=== PATIENT | male | born 1985 | race Caucasian/White ===

== ENCOUNTER 2018-01-04 11:09 | Emergency (ER) | payer BC, OTHER ==
[~2018-01-04] VITALS: Ht 172.7 cm; Wt 81.6 kg
[~2018-01-04 11:09] MED LIST: ACHD5005 PO; ACHYD1T PO; AZIT250T PO; CEPH500C PO; CIPR500T78 PO; CPR500T PO; DOXY100C2 PO; FAMO20TA5 PO; HYDR-2997 PO; HYDR-3714 PO; HYDR-4226 PO; NAPR-243 PO; NAPR-915 PO; NEOM10DR6 EACH EAR; OTC ALLERGY MED; PRD20T PO; SULF1TAB35 PO; SULF1TAB38 PO; TAMS0.4C2 PO; TRM50T PO
[2018-01-04 12:05] VITALS: BP 136/91
[2018-01-04 12:24] LABS: BASOPHILS % (AUTO) 0 % (0-10); EOSINOPHILS # (AUTO) 0.2 10^3/uL (0.0-0.3); EOSINOPHILS % (AUTO) 1 % (0-10); HEMATOCRIT 45 % (40-54); HEMOGLOBIN 15.7 G/DL (13.3-17.7); LYMPHOCYTES # (AUTO) 1.4 X 10^3 (1.0-4.0); LYMPHOCYTES % (AUTO) 13 % (12-44); MEAN CORPUSCULAR HEMOGLOBIN 32 PG (25-34); MEAN CORPUSCULAR HGB CONC 35 G/DL (32-36); MEAN CORPUSCULAR VOLUME 91 FL (80-99); MEAN PLATELET VOLUME 10.3 FL (7.4-10.4); MONOCYTES % (AUTO) 9 % (0-12); NEUTROPHILS # (AUTO) 8.7 X 10^3 (1.8-7.8); NEUTROPHILS % (AUTO) 77 % (42-75); PLATELET COUNT 194 10^3/uL (130-400); RED BLOOD COUNT 4.94 10^6/uL (4.35-5.85); RED CELL DISTRIBUTION WIDTH 14.5 % (10.0-14.5); WHITE BLOOD COUNT 11.3 10^3/uL (4.3-11.0)
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
[2018-01-04] MEDS ORDERED: KETOROLAC 30 MG/ML VIAL IVP ONE (12:30)
[2018-01-04] MEDS ORDERED: NS IV 1000 ML 1,000 ML IV SCH (12:30)
[2018-01-04 12:43] LABS: ALANINE AMINOTRANSFERASE 31 U/L (0-55); ALBUMIN 4.4 GM/DL (3.2-4.5); ALKALINE PHOSPHATASE 106 U/L (40-136); AMYLASE 63 U/L (25-125); BILIRUBIN,TOTAL 0.6 MG/DL (0.1-1.0); BUN/CREATININE RATIO 11; CALCIUM 9.5 MG/DL (8.5-10.1); CARBON DIOXIDE 23 MMOL/L (21-32); CHLORIDE 105 MMOL/L (98-107); CREATININE SERUM 1.22 MG/DL (0.60-1.30); GFR ESTIMATED > 60; GLUCOSE 114 MG/DL (70-105); LIPASE 60 U/L (8-78); POTASSIUM 4.5 MMOL/L (3.6-5.0); SODIUM 140 MMOL/L (135-145); TOTAL PROTEIN 7.2 GM/DL (6.4-8.2)
--- NOTE | 2018-01-04 12:59 | Diagnostic Imaging Report ---
PROCEDURE: CT urinary tract, rule out kidney stone. TECHNIQUE: Multiple contiguous axial images were obtained through the abdomen and pelvis without the use of intravenous contrast. INDICATION: Hematuria and left flank pain. History of previous kidney stone. Comparison with 01/03/2015. Findings: There is hydronephrosis of the left kidney and ureter. Left ureter is dilated with a stone in the ureter in the midpelvis measuring 5 mm. Ureter is not dilated distal to this. Bladder is decompressed. No hydronephrosis noted on the right. There is a 3 mm calculus within the lower pole calyx of the left kidney. Right kidney shows several calculi largest in the upper pole measuring 5 mm. There is no perinephric fluid. The lung bases are clear. The liver and gallbladder are normal. Pancreas and spleen are normal. Adrenal glands are normal. Bowel gas pattern is normal throughout. The appendix is not dilated. No free air or free fluid. IMPRESSION: 1. Development of hydronephrosis on the left since previous exam with 5 mm calculus in the ureter at the level of the mid pelvis. 2. Nonobstructing small calyceal calculi noted in the kidneys bilaterally. Dictated by: Dictated on workstation # [id number]
[2018-01-04 13:32] LABS: BILIRUBIN,URINE NEGATIVE (NEGATIVE); CLARITY,URINE VERY CLOUDY; COLOR,URINE AMBER; GLUCOSE, URINE (UA) NEGATIVE (NEGATIVE); KETONES,URINE 1+ (NEGATIVE); LEUKOCYTE ESTERASE ,URINE 2+ (NEGATIVE); NITRITE,URINE NEGATIVE (NEGATIVE); PH,URINE 7 (5-9); PROTEIN,URINE 3+ (NEGATIVE); UROBILINOGEN,URINE 1 MG/DL (NORMAL)
--- NOTE | 2018-01-04 13:35 | Diagnostic Imaging Report ---
INDICATION: Back pain, hematuria. COMPARISON: None. FINDINGS: 2 views of the abdomen demonstrate calcifications in the upper pole of the right kidney. No obvious ureteral calcifications are seen. The bowel gas pattern is normal. There is no free air. IMPRESSION: Upper pole renal calcifications likely nephrolithiasis. Dictated by: Dictated on workstation # [id number]
[2018-01-04 13:44] LABS: BACTERIA,URINE TRACE /HPF; RBC,URINE TNTC /HPF
[2018-01-04 13:45] LABS: CALCIUM OXALATE CRYSTALS,UR RARE /LPF; SQUAMOUS EPITHELIAL CELL,UR 0-2 /HPF
[2018-01-04] MEDS ORDERED: fentaNYL INJECTION 100 MCG/2 ML AMP IVP ONE (14:15)
[2018-01-04] MEDS ORDERED: ACHD5005 PO (14:18)
[2018-01-04] MEDS ORDERED: SULF1TAB35 PO (14:18)
== END 2018-01-04 14:26 | disposition home or self-care (01) ==
LOC: EDUNIT# 11:09 → ER 11:10
DX: N20.0 Calculus of kidney (principal); F17.200 Nicotine dependence, unspecified, uncomplicated; Z86.19 Personal history of other infectious and parasitic diseases
CPT/HCPCS: 36415; 74018; 74176; 80053; 81000; 82150; 83690; 85025; 87088

== ENCOUNTER 2018-01-26 16:47 | Emergency (ER) | payer BC ==
[~2018-01-26] VITALS: Ht 175.3 cm; Wt 79.4 kg
--- OUTSIDE RECORDS SUMMARY | 2018-01-26 16:52 | XMS REPORT | Continuity of Care Document ---
Author Author [facility] Address Unknown Phone Unavailable Allergies Active Description Code Type Severity Reaction Onset Reported/Identified Relationship to Patient Clinical Status Yes NKANo Known Allergies NKA Miscellaneous Allergy Mild N/A 08/24/2009 Medications There is no data. 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 NOS 02/05/2010 300.00 AN ANXIETY UNSPEC 02/05/2010 461.9 ACUTE SINUSITIS UNSPECIFIED 02/05/2010 LAZARUS VOGEL MD 296.90 MO MOOD DIS NOS 02/05/2010 LAZARUS VOGEL MD 300.00 AN ANXIETY UNSPEC 02/05/2010 LAZARUS VOGEL MD 461.9 ACUTE SINUSITIS UNSPECIFIED 01/22/2011 786.2 COUGH 01/22/2011 LAZARUS VOGEL MD 786.2 COUGH 03/06/2011 Ot 305.1 03/06/2011 Ot 465.9 03/06/2011 Ot 490 03/06/2011 Ot 786.2 03/06/2011 Ot 786.52 03/11/2011 Ot 305.1 03/11/2011 Ot 490 03/11/2011 Ot 786.2 03/11/2011 Ot 786.52 08/01/2011 Ot 930.1 08/01/2011 Ot E000.8 08/01/2011 Ot E016.9 08/01/2011 Ot E914 08/01/2011 Ot V06.1 06/09/2012 V70.5 PREEMPLOYMENT/ PRESCHOOL EXAM 06/09/2012 V74.1 TB SCREENING 06/09/2012 LAZARUS VOGEL MD V70.5 PREEMPLOYMENT/PRESCHOOL EXAM 06/09/2012 LAZARUS VOGEL MD V74.1 TB SCREENING 11/21/2012 DORITA GUTIERREZ MD Ot 346.90 11/21/2012 MATT MANUEL, DORITA T Ot 784.0 03/08/2013 YESSENIA MANUEL, YAZ Valencia Ot 543.9 03/08/2013 YESSENIA MANUEL, YAZ Valencia Ot 789.09 03/08/2013 YAZ CASAS MD Ot 920 03/10/2013 LELA MANUEL, LAZARUS N Ot 305.1 03/10/2013 LELA MANUEL, LAZARUS N Ot 564.00 03/10/2013 LELA MANUEL, LAZARUS N Ot 591 03/10/2013 LELA MANUEL, LAZARUS N Ot 592.0 03/10/2013 LELA MANUEL, LAZARUS N Ot 592.1 06/08/2013 YESSENIA MANUEL, YAZ Valencia Ot 388.70 06/08/2013 YAZ CASAS MD Ot 786.2 07/04/2013 LUIS ANTONIO EASTON Ot 372.14 07/04/2013 LUIS ANTONIO EASTON Ot 379.93 01/18/2014 YAZ CASAS MD Ot 592.0 01/18/2014 YAZ CASAS MD Ot 789.04 01/03/2015 ADAMARIS AMIRAH MATA K Ot 682.3 01/03/2015 ADAMARIS AMIRAH K Ot 789.09 01/03/2015 ADAMARIS AMIRAH MATA K Ot V12.04 03/30/2015 ZAIDA DIOP APRN Ot F17.210 03/30/2015 ZAIDA DIOP APRN Ot F19.10 03/30/2015 ZAIDA DIOP BI REPORT DEVELOPER Ot J40 03/30/2015 ZAIDA DIOP BI REPORT DEVELOPER Ot S39.92XA 03/30/2015 ZAIDA DIOP BI REPORT DEVELOPER Ot W01.0XXA 03/30/2015 ZAIDA DIOP BI REPORT DEVELOPER Ot Y99.8 01/06/2018 SATISH DAVIS Ot F17.200 NICOTINE DEPENDENCE, UNSPECIFIED, UNCOMP 01/06/2018 SATISH DAVIS Ot N20.0 CALCULUS OF KIDNEY 01/06/2018 SATISH DAVIS Ot R10.9 UNSPECIFIED ABDOMINAL PAIN 01/06/2018 SATISH DAVIS Ot Z86.19 PERSONAL HISTORY OF OTHER INFECTIOUS AND Procedures Code [place] [address] TB TEST INTRADERMAL 06/09/2012 96246 URINE DRUG SCREEN (IN-HOUSE ) 06/09/2012 Results Test Result Range Complete blood count (CBC) with automated white blood cell (WBC) differential - 01/04/18 12:15 Blood leukocytes automated count (number/volume) 11.3 10*3/uL 4.3-11.0 Blood erythrocytes automated count (number/volume) 4.94 10*6/uL 4.35-5.85 Venous blood hemoglobin measurement (mass/volume) 15.7 g/dL 13.3-17.7 Blood hematocrit (volume fraction) 45 % 40-54 Automated erythrocyte mean corpuscular volume 91 [foz_us] 80-99 Automated erythrocyte mean corpuscular hemoglobin (mass per erythrocyte) 32 pg 25-34 Automated erythrocyte mean corpuscular hemoglobin concentration measurement ( mass/volume) 35 g/dL 32-36 Automated erythrocyte distribution width ratio 14.5 % 10.0-14.5 Automated blood platelet count (count/volume) 194 10*3/uL 130-400 Automated blood platelet mean volume measurement 10.3 [foz_us] 7.4-10.4 Automated blood neutrophils/100 leukocytes 77 % 42-75 Automated blood lymphocytes/100 leukocytes 13 % 12-44 Blood monocytes/100 leukocytes 9 % 0-12 Automated blood eosinophils/100 leukocytes 1 % 0-10 Automated blood basophils/100 leukocytes 0 % 0-10 Blood neutrophils automated count (number/volume) 8.7 10*3 1.8-7.8 Blood lymphocytes automated count (number/volume) 1.4 10*3 1.0-4.0 Blood monocytes automated count (number/volume) 1.0 10*3 0.0-1.0 Automated eosinophil count 0.2 10*3/uL 0.0-0.3 Automated blood basophil count (count/volume) 0.0 10*3/uL 0.0-0.1 Comprehensive metabolic panel - 01/04/18 12:15 Serum or plasma sodium measurement (moles/volume) 140 mmol/L 135-145 Serum or plasma potassium measurement (moles/volume) 4.5 mmol/L 3.6-5.0 Serum or plasma chloride measurement (moles/volume) 105 mmol/L 98-107 Carbon dioxide 23 mmol/L 21-32 Serum or plasma anion gap determination (moles/volume) 12 mmol/L 5-14 Serum or plasma urea nitrogen measurement (mass/volume) 13 mg/dL 7-18 Serum or plasma creatinine measurement (mass/volume) 1.22 mg/dL 0.60-1.30 Serum or plasma urea nitrogen/creatinine mass ratio 11 NRG Serum or plasma creatinine measurement with calculation of estimated glomerular filtration rate > NRG Serum or plasma glucose measurement (mass/volume) 114 mg/dL 70-105 Serum or plasma calcium measurement (mass/volume) 9.5 mg/dL 8.5-10.1 Serum or plasma total bilirubin measurement (mass/volume) 0.6 mg/dL 0.1-1.0 Serum or plasma alkaline phosphatase measurement (enzymatic activity/volume) 106 U/L 40-136 Serum or plasma aspartate aminotransferase measurement (enzymatic activity/ volume) 23 U/L 5-34 Serum or plasma alanine aminotransferase measurement (enzymatic activity/volume ) 31 U/L 0-55 Serum or plasma protein measurement (mass/volume) 7.2 g/dL 6.4-8.2 Serum or plasma albumin measurement (mass/volume) 4.4 g/dL 3.2-4.5 CALCIUM CORRECTED 9.2 mg/dL 8.5-10.1 Serum or plasma amylase measurement (enzymatic activity/volume) - 01/04/18 12: 15 Serum or plasma amylase measurement (enzymatic activity/volume) 63 U /L 25-125 Lipase - 01/04/18 12:15 Lipase 60 U/L 8-78 Complete urinalysis with reflex to culture - 01/04/18 13:20 Urine color determination KOMAL NRG Urine clarity determination VERY CLOUDY NRG Urine pH measurement by test strip 7 5-9 Specific gravity of urine by test strip 1.015 1.016- 1.022 Urine protein assay by test strip, semi-quantitative 3+ NEGATIVE Urine glucose detection by automated test strip NEGATIVE NEGATIVE Erythrocytes detection in urine sediment by light microscopy 5+ NEGATIVE Urine ketones detection by automated test strip 1+ NEGATIVE Urine nitrite detection by test strip NEGATIVE NEGATIVE Urine total bilirubin detection by test strip NEGATIVE NEGATIVE Urine urobilinogen measurement by automated test strip (mass/volume) 1 mg/dL NORMAL Urine leukocyte esterase detection by dipstick 2+ NEGATIVE Automated urine sediment erythrocyte count by microscopy (number/high power field) [facility] Automated urine sediment leukocyte count by microscopy (number/high power field ) [HPF] NRG Bacteria detection in urine sediment by light microscopy TRACE NRG Squamous epithelial cells detection in urine sediment by light microscopy 0-2 NRG Crystals detection in urine sediment by light microscopy PRESENT NRG Casts detection in urine sediment by light microscopy NONE NRG Mucus detection in urine sediment by light microscopy MODERATE NRG Complete urinalysis with reflex to culture YES NRG Calcium oxalate crystals detection in urine sediment by light microscopy RARE NRG Bacterial urine culture - 01/04/18 13:20 Bacterial urine culture NG NRG Encounters ACCT No. Visit Date/Time Discharge Status Pt. Type Provider Facility Loc./Unit Complaint [id number] 03/23/2013 11:02:00 03/23/2013 23:59:59 CLS Outpatient LAZARUS VOGEL MD [id number] 06/09/2012 13:17:00 06/09/2012 23:59:59 CLS Outpatient [id number] 01/03/2015 21:39:43 ACT Document Registration [id number] 01/04/2018 11:10:00 01/04/2018 14:26:00 DIS Outpatient SATISH DAVIS [facility] ER L SIDE ABD PAIN [id number] 05/04/2015 13:41:00 05/04/2015 15:03:00 DIS Emergency SEGUN VAZQUEZ MD [facility] ER [id number] 03/30/2015 19:31:00 03/30/2015 20:44:00 DIS Emergency ZAIDA DIOP APRN [facility] ER [id number] 01/03/2015 21:39:00 01/03/2015 23:36:00 DIS Emergency AMIRAH BAILON DO [facility] ER [id number] 01/18/2014 09:06:00 01/18/2014 10:51:00 DIS Emergency YAZ CASAS MD [facility] ER [id number] 07/04/2013 21:42:00 07/04/2013 22:29:00 DIS Emergency LUIS ANTONIO EASTON [facility] ER [id number] 06/08/2013 09:54:00 06/08/2013 11:17:00 DIS Emergency YAZ CASAS MD [facility] ER [id number] 03/09/2013 10:27:00 03/10/2013 17:35:00 DIS Inpatient LAZARUS VOGEL MD [facility] SURGICAL [id number] 03/08/2013 13:33:00 03/08/2013 18:01:00 DIS Emergency [id number] 03/08/2013 01:16:00 03/08/2013 03:10:00 DIS Emergency YAZ CASAS MD [facility] ER [id number] 12/01/2012 19:24:00 12/01/2012 23:59:59 CLS Outpatient [id number] 11/21/2012 17:24:00 11/21/2012 20:00:00 DIS Emergency DORITA GUTIERREZ MD [facility] ER [id number] 09/09/2012 16:10:00 09/09/2012 23:59:59 CLS Outpatient [id number] 01/03/2015 21:39:00 Document Registration [id number] 01/03/2015 21:39:00 Document Registration [id number] 03/06/2011 11:16:00 Document Registration [id number] 08/24/2009 00:05:00 Document Registration
[2018-01-26] MEDS ORDERED: KETOROLAC 30 MG/ML VIAL IVP ONE (17:15)
[2018-01-26 17:28] LABS: BILIRUBIN,URINE NEGATIVE (NEGATIVE); CLARITY,URINE VERY CLOUDY; COLOR,URINE YELLOW; GLUCOSE, URINE (UA) NEGATIVE (NEGATIVE); KETONES,URINE NEGATIVE (NEGATIVE); LEUKOCYTE ESTERASE ,URINE 2+ (NEGATIVE); NITRITE,URINE NEGATIVE (NEGATIVE); PH,URINE 6 (5-9); PROTEIN,URINE 2+ (NEGATIVE); UROBILINOGEN,URINE NORMAL (NORMAL)
[2018-01-26] MEDS ORDERED: fentaNYL INJECTION 100 MCG/2 ML AMP IVP ONE (17:30)
[2018-01-26] MEDS ORDERED: NS IV 1000 ML 1,000 ML IV SCH (17:30)
[2018-01-26 17:35] LABS: BASOPHILS # (AUTO) 0.1 10^3/uL (0.0-0.1); BASOPHILS % (AUTO) 1 % (0-10); EOSINOPHILS # (AUTO) 0.1 10^3/uL (0.0-0.3); EOSINOPHILS % (AUTO) 1 % (0-10); HEMATOCRIT 41 % (40-54); HEMOGLOBIN 14.3 G/DL (13.3-17.7); LYMPHOCYTES # (AUTO) 1.6 X 10^3 (1.0-4.0); LYMPHOCYTES % (AUTO) 12 % (12-44); MEAN CORPUSCULAR HEMOGLOBIN 32 PG (25-34); MEAN CORPUSCULAR HGB CONC 35 G/DL (32-36); MEAN CORPUSCULAR VOLUME 91 FL (80-99); MEAN PLATELET VOLUME 10.7 FL (7.4-10.4); MONOCYTES # (AUTO) 1.3 X 10^3 (0.0-1.0); MONOCYTES % (AUTO) 10 % (0-12); NEUTROPHILS # (AUTO) 9.8 X 10^3 (1.8-7.8); NEUTROPHILS % (AUTO) 76 % (42-75); PLATELET COUNT 189 10^3/uL (130-400); RED BLOOD COUNT 4.54 10^6/uL (4.35-5.85); RED CELL DISTRIBUTION WIDTH 14.2 % (10.0-14.5); WHITE BLOOD COUNT 12.9 10^3/uL (4.3-11.0)
--- NOTE | 2018-01-26 17:36 | ED GU-Male ---
General Chief Complaint: Abdominal/GI Problems Stated Complaint: L SIDE PAIN Nursing Triage Note: ARRIVED VIA AMB TO TRIAGE WITHOUT DIFFICULTY. COMPLAINS OF LEFT FLANK PAIN STARTING THIS AM THAT HAS BECAME WORSE OVER THE LAST HOUR. STATES HE HAS A HX OF KIDNEY STONES. STATES HE STILL HAS MEDICINE AT HOME FROM HIS VISIT 2 WEEKS AGO THAT HE DID NOT FINISH. Source: patient Exam Limitations: no limitations History of Present Illness Date Seen by Provider: Jan 26, 2018 Time Seen by Provider: 17:35 Initial Comments To ER for private vehicle with reports of recurrent left flank pain that began today at about 2 PM. He was seen here a few weeks ago for a left ureteral stone. He was feeling better so he quit taking his Bactrim and hydrocodone. Today the pain recurred. No fevers or chills. Timing/Duration: this afternoon Severity/Quality: moderate Location: left flank Radiation: suprapubic Activities at Onset: none Prior Genitourinary Problems: none Allergies and Home Medications Allergies Coded Allergies: NKANo Known Allergies (Unverified Allergy, Mild, 08/24/09) Home Medications Hydrocodone Bit/Acetaminophen 1 Tab Tab, 1 EACH PO Q6H PRN for PAIN Prescribed by: SATISH DAVIS on 01/04/18 1418 Sulfamethoxazole/Trimethoprim 1 Each Tablet, 1 EACH PO BID Prescribed by: SATISH DAVIS on 01/04/18 1418 Patient Home Medication List Home Medication List Reviewed: Yes Review of Systems Review of Systems Constitutional: see HPI EENTM: see HPI Respiratory: no symptoms reported Cardiovascular: no symptoms reported Genitourinary: see HPI, flank pain Musculoskeletal: no symptoms reported Skin: no symptoms reported Psychiatric/Neurological: No Symptoms Reported Endocrine: No Symptoms Reported Hematologic/Lymphatic: No Symptoms Reported Past Vjjvghr-Jwaalb-Dxvgei Hx Patient Social History Alcohol Use: Occasionally Uses Recreational Drug Use: No Smoking Status: Current Everyday Smoker Recent Foreign Travel: No Contact w/Someone Who Travel: No Recent Infectious Disease Expo: No Immunizations Up To Date Tetanus Booster (TDap): Less than 5yrs Past Medical History Surgeries: Yes (LITHOTRIPSY, UNKNOWN THROAT SURGERY INFANT, BB REMOVED FROM EYE) Eye Surgery, Renal Respiratory: No Cardiac: No Neurological: No Reproductive Disorders: No Kidney Stones Gastrointestinal: No Musculoskeletal: No Endocrine: No Cancer: No Psychosocial: No Integumentary: Yes (MRSA) Blood Disorders: No Family Medical History Patient reports no known family medical history. Physical Exam Vital Signs Vital Signs - First Documented 01/26/18 16:50 Temp 97.8 Pulse 80 Resp 16 B/P (MAP) 120/84 (96) Pulse Ox 99 O2 Delivery Room Air Capillary Refill : Less Than 3 Seconds Height, Weight, BMI Height: 5'9.00" Weight: 175lbs. oz. 79.673755bw; BMI Method:Stated General Appearance: WD/WN, no apparent distress HEENT: PERRL/EOMI, normal ENT inspection Neck: non-tender, full range of motion Respiratory: no respiratory distress, no accessory muscle use Gastrointestinal: normal bowel sounds, non tender Extremities: normal range of motion, non-tender Neurologic/Psychiatric: alert, normal mood/affect, oriented x 3 Skin: normal color, warm/dry Progress/Results/Core Measures Suspected Sepsis Recent Fever Within 48 Hours: No Infection Criteria Present: None New/Unexplained Altered Menta: No Sepsis Screen: No Definite Risk SIRS Temperature:97.8 Pulse: 80 Respiratory Rate: 16 Laboratory Tests 01/26/18 17:29: White Blood Count 12.9H Blood Pressure 120 /84 Mean: 96 Laboratory Tests 01/26/18 17:29: Creatinine 1.44H, Platelet Count 189, Total Bilirubin 0.4 Results/Orders Lab Results Laboratory Tests Test 01/26/18 17:17 01/26/18 17:29 Range/Units Urine Color YELLOW Urine Clarity VERY CLOUDY H Urine pH 6 5-9 Urine Specific [employer] 1.020 1.016-1.022 Urine Protein 2+ H NEGATIVE Urine Glucose (UA) NEGATIVE NEGATIVE Urine Ketones NEGATIVE NEGATIVE Urine Nitrite NEGATIVE NEGATIVE Urine Bilirubin NEGATIVE NEGATIVE Urine Urobilinogen NORMAL NORMAL MG/DL Urine Leukocyte Esterase 2+ H NEGATIVE Urine RBC (Auto) 5+ H NEGATIVE Urine RBC TNTC H /HPF Urine WBC 5-10 H /HPF Urine Crystals NONE /LPF Urine Bacteria TRACE /HPF Urine Casts NONE /LPF Urine Mucus NEGATIVE /LPF Urine Culture Indicated YES White Blood Count 12.9 H 4.3-11.0 10^3/uL Red Blood Count 4.54 4.35-5.85 10^6/uL Hemoglobin 14.3 13.3-17.7 G/DL Hematocrit 41 40-54 % Mean Corpuscular Volume 91 80-99 FL Mean Corpuscular Hemoglobin 32 25-34 PG Mean Corpuscular Hemoglobin Concent 35 32-36 G/DL Red Cell Distribution Width 14.2 10.0-14.5 % Platelet Count 189 130-400 10^3/uL Mean Platelet Volume 10.7 H 7.4-10.4 FL Neutrophils (%) (Auto) 76 H 42-75 % Lymphocytes (%) (Auto) 12 12-44 % Monocytes (%) (Auto) 10 0-12 % Eosinophils (%) (Auto) 1 0-10 % Basophils (%) (Auto) 1 0-10 % Neutrophils # (Auto) 9.8 H 1.8-7.8 X 10^3 Lymphocytes # (Auto) 1.6 1.0-4.0 X 10^3 Monocytes # (Auto) 1.3 H 0.0-1.0 X 10^3 Eosinophils # (Auto) 0.1 0.0-0.3 10^3/uL Basophils # (Auto) 0.1 0.0-0.1 10^3/uL Sodium Level 139 135-145 MMOL/L Potassium Level 4.3 3.6-5.0 MMOL/L Chloride Level 106 98-107 MMOL/L Carbon Dioxide Level 21 21-32 MMOL/L Anion Gap 12 5-14 MMOL/L Blood Urea Nitrogen 15 7-18 MG/DL Creatinine 1.44 H 0.60-1.30 MG/DL Estimat Glomerular Filtration Rate 57 BUN/Creatinine Ratio 10 Glucose Level 102 70-105 MG/DL Calcium Level 9.5 8.5-10.1 MG/DL Corrected Calcium 9.3 8.5-10.1 MG/DL Total Bilirubin 0.4 0.1-1.0 MG/DL Aspartate Amino Transf (AST/SGOT) 59 H 5-34 U/L Alanine Aminotransferase (ALT/SGPT) 40 0-55 U/L Alkaline Phosphatase 86 40-136 U/L Total Protein 7.4 6.4-8.2 GM/DL Albumin 4.3 3.2-4.5 GM/DL My Orders Orders - ZAIDA DIOP RELEASE AND TECHNICAL RECORDS CLERK Ketorolac Injection (Toradol Injection) (01/26/18 17:15) Iv Heplock-Insert (Order) (01/26/18 17:02) Cbc With Automated Diff (01/26/18 17:02) Comprehensive Metabolic Panel (01/26/18 17:02) Ua Culture If Indicated (01/26/18 17:02) Abdomen/Kub 1view (01/26/18 17:02) Ns Iv 1000 Ml (Sodium Chloride 0.9%) (01/26/18 17:30) Fentanyl Injection (Sublimaze Injection (01/26/18 17:30) Urine Culture (01/26/18 17:17) Ceftriaxone For Iv Use (Rocephin For I (01/26/18 18:00) Morphine Injection (Morphine Injection (01/26/18 18:45) Medications Given in ED Current Medications Medications Dose Ordered Sig/Saravanan Route Start Time Stop Time Status Last Admin Dose Admin Ceftriaxone Sodium 1000 mg/ Sodium Chloride 50 ml @ 100 mls/hr ONCE ONCE IV 01/26/18 18:00 01/26/18 18:29 DC 01/26/18 18:38 100 MLS/HR Fentanyl Citrate 50 mcg ONCE ONCE IVP 01/26/18 17:30 01/26/18 17:31 DC 01/26/18 17:53 50 MCG Ketorolac Tromethamine 30 mg ONCE ONCE IVP 01/26/18 17:15 01/26/18 17:16 DC 01/26/18 17:52 30 MG Morphine Sulfate 4 mg ONCE ONCE IVP 01/26/18 18:45 01/26/18 18:46 DC 01/26/18 18:38 4 MG Vital Signs/I&O 01/26/18 16:50 Temp 97.8 Pulse 80 Resp 16 B/P (MAP) 120/84 (96) Pulse Ox 99 O2 Delivery Room Air Capillary Refill : Less Than 3 Seconds Blood Pressure Mean: 96 Diagnostic Imaging Diagonstic Imaging: Xray Plain Films/CT/US/NM/MRI: chest Comments NAME: DORITA HILLIARD [facility] REC#: [id number] PT STATUS: REG ER : 1985 PHYSICIAN: ZAIDA DIOP APRN ADMIT DATE: 01/26/18/ER Draft Date of Exam:01/26/18 ABDOMEN/KUB 1VIEW INDICATION: Left flank pain x1 day. COMPARISON: 01/04/2018 FINDINGS: Single supine radiographic view of the abdomen was obtained and again demonstrates extraosseous calcifications projecting over the superior pole of the right kidney. Pelvic phleboliths are also again noted. No other unexpected extraosseous calcifications or radiopaque foreign bodies are seen. Small bowel loops are nondistended. There is no large collection of free intraperitoneal air. Bony structures show no acute abnormalities. IMPRESSION: 1. Right-sided nephrolithiasis. 2. No other new or otherwise unexpected extraosseous calcifications or radiopaque foreign bodies. Dictated on workstation # [id number] Dict: 01/26/18 1803 Trans: 01/26/181806 [id number] Interpreted by: NIKOLAI FLANNERY MD Electronically signed by: Departure Impression Primary Impression: Left ureteral stone Disposition: HOME, SELF-CARE Condition: Improved Departure-Patient Inst. Decision time for Depature: 18:43 Referrals: NO,LOCAL PHYSICIAN (PCP) Primary Care Physician DIONTE JOSUE MD Patient Instructions: Kidney Stones in Adults Add. Discharge Instructions: Your antibiotics were sent to [facility]. 1. Follow-up with Dr. Husain. Call his office tomorrow to make an appointment to be seen. Take pain medication as directed and the antibiotics as directed. Scripts Sulfamethoxazole/Trimethoprim (Bactrim Ds Tablet) 1 Each Tablet 1 EACH PO BID, #14 TAB Prov: ZAIDA DIOP APRN 01/26/18 Tamsulosin HCl (Flomax) 0.4 Mg Cap 0.4 MG PO DAILY, #20 CAP Prov: ZAIDA DIOP APRN 01/26/18 Hydrocodone/Acetaminophen (Smilax 5-325 Tablet) 1 Each Tablet 1 EACH PO Q4H PRN for PAIN-MODERATE TO SEVERE, #20 TAB Prov: ZAIDA DIOP APRN 01/26/18 Work/School Note: Work Release Form Date Seen in the Emergency Department: Jan 26, 2018 Return to Work: Jan 28, 2018 ZAIDA DIOP APRN Jan 26, 2018 17:36
[2018-01-26 17:40] LABS: BACTERIA,URINE TRACE /HPF; RBC,URINE TNTC /HPF
[2018-01-26] MEDS ORDERED: cefTRIAXone FOR IV USE 1,000 MG in NS (IVPB) 50 ML IV ONE (18:00)
[2018-01-26 18:01] LABS: ALBUMIN 4.3 GM/DL (3.2-4.5); BILIRUBIN,TOTAL 0.4 MG/DL (0.1-1.0); CALCIUM 9.5 MG/DL (8.5-10.1); CREATININE SERUM 1.44 MG/DL (0.60-1.30); POTASSIUM 4.3 MMOL/L (3.6-5.0); TOTAL PROTEIN 7.4 GM/DL (6.4-8.2)
--- NOTE | 2018-01-26 18:08 | Diagnostic Imaging Report ---
INDICATION: Left flank pain x1 day. COMPARISON: 01/04/2018 FINDINGS: Single supine radiographic view of the abdomen was obtained and again demonstrates extraosseous calcifications projecting over the superior pole of the right kidney. Pelvic phleboliths are also again noted. No other unexpected extraosseous calcifications or radiopaque foreign bodies are seen. Small bowel loops are nondistended. There is no large collection of free intraperitoneal air. Bony structures show no acute abnormalities. IMPRESSION: 1. Right-sided nephrolithiasis. 2. No other new or otherwise unexpected extraosseous calcifications or radiopaque foreign bodies. Dictated by: Dictated on workstation # [id number]
[2018-01-26] MEDS ORDERED: morphine INJ 10 MG/ML 1ML (SYR OR VIAL) IVP ONE (18:45)
[2018-01-26] MEDS ORDERED: HYDR-4226 PO (19:02)
[2018-01-26] MEDS ORDERED: TAMS0.4C98 PO (19:02)
[2018-01-26] MEDS ORDERED: SULF1TAB35 PO (19:02)
[2018-01-26 19:10] VITALS: BP 120/84
== END 2018-01-26 19:10 | disposition home or self-care (01) ==
LOC: EDUNIT# 16:47 → ER 16:48
DX: N20.2 Calculus of kidney with calculus of ureter (principal); F17.200 Nicotine dependence, unspecified, uncomplicated; Z86.14 Personal history of Methicillin resistant Staphylococcus aureus infection
CPT/HCPCS: 36415; 74018; 80053; 81000; 85025; 87088

== ENCOUNTER 2019-01-11 18:06 | Observation (INO) | payer SELFPAY ==
[~2019-01-11] VITALS: Ht 175.3 cm; Wt 75.3 kg
[~2019-01-11 18:06] MED LIST changes: +TAMS0.4C98 PO
[2019-01-11] MEDS ORDERED: NS IV 1000 ML 1,000 ML IV ONE (18:23)
--- NOTE | 2019-01-11 18:29 | ED Abdominal Pain ---
General Stated Complaint: ABD PAIN Source of Information: Patient Exam Limitations: No Limitations (DORITA GUTIERREZ MD) History of Present Illness Date Seen by Provider: Jan 11, 2019 Initial Comments 33 year old male pt has had severe right sided abdominal pain starting two and a half hours ago. He has not eaten or urinated since. Pain is constant and severe. He has had a prior episode like this that was a 10mm kidney stone with a procedure to remove. (ELIECER DENNY) Time Seen by Provider: 18:25 (DORITA GUTIERREZ MD) Allergies and Home Medications Allergies Coded Allergies: NKANo Known Allergies (Unverified Allergy, Mild, 08/24/09) Home Medications Hydrocodone Bit/Acetaminophen 1 Tab Tab, 1 EACH PO Q6H PRN for PAIN Prescribed by: SATISH DAVIS on 01/04/181417 Hydrocodone/Acetaminophen 1 Each Tablet, 1 EACH PO Q4H PRN for PAIN-MODERATE TO SEVERE Prescribed by: ZAIDA DIOP on 01/26/181901 Sulfamethoxazole/Trimethoprim 1 Each Tablet, 1 EACH PO BID Prescribed by: SATISH DAVIS on 01/04/181417 Sulfamethoxazole/Trimethoprim 1 Each Tablet, 1 EACH PO BID Prescribed by: ZAIDA DIOP on 01/26/181901 Tamsulosin HCl 0.4 Mg Cap, 0.4 MG PO DAILY Prescribed by: ZAIDA DIOP on 01/26/181901 Patient Home Medication List Home Medication List Reviewed: Yes (DORITA GUTIERREZ MD) Review of Systems Review of Systems Constitutional: no symptoms reported EENTM: No Symptoms Reported Respiratory: No Symptoms Reported Cardiovascular: No Symptoms Reported Gastrointestinal: See HPI Genitourinary: See HPI Musculoskeletal: no symptoms reported Skin: no symptoms reported Psychiatric/Neurological: No Symptoms Reported Endocrine: No Symptoms Reported Hematologic/Lymphatic: No Symptoms Reported (ELIECER DENNY) Past Nchhbwz-Mmmnpt-Nruddo Hx Patient Social History Recent Foreign Travel: No Contact w/Someone Who Travel: No (ELIECER DENNY) Immunizations Up To Date Tetanus Booster (TDap): Less than 5yrs (ELIECER DENNY) Past Medical History Surgeries: Yes (LITHOTRIPSY, UNKNOWN THROAT SURGERY , BB REMOVED FROM EYE) Eye Surgery, Renal Respiratory: No Cardiac: No Neurological: No Reproductive Disorders: No Kidney Stones Gastrointestinal: No Musculoskeletal: No Endocrine: No Cancer: No Psychosocial: No Integumentary: Yes (MRSA) Blood Disorders: No (ELIECER DENNY STUDENT) Family Medical History Patient reports no known family medical history. Physical Exam Vital Signs Capillary Refill : (ELIECER DENNY STUDENT) Height/Weight/BMI Height: 5'9.00" Weight: 175lbs. oz. 79.268069ta; BMI Method:Stated General Appearance: severe distress Respiratory: no respiratory distress, no accessory muscle use Extremities: normal inspection Neurologic/Psychiatric: alert, oriented x 3 Skin: normal color, warm/dry (ELIECER DENNY STUDENT) Progress/Results/Core Measures Results/Orders Lab Results Laboratory Tests Test 01/11/19 18:25 Range/Units White Blood Count 15.7 H 4.3-11.0 10^3/uL Red Blood Count 4.71 4.35-5.85 10^6/uL Hemoglobin 15.1 13.3-17.7 G/DL Hematocrit 43 40-54 % Mean Corpuscular Volume 92 80-99 FL Mean Corpuscular Hemoglobin 32 25-34 PG Mean Corpuscular Hemoglobin Concent 35 32-36 G/DL Red Cell Distribution Width 14.2 10.0-14.5 % Platelet Count 217 130-400 10^3/uL Mean Platelet Volume 10.3 7.4-10.4 FL Neutrophils (%) (Auto) 78 H 42-75 % Lymphocytes (%) (Auto) 13 12-44 % Monocytes (%) (Auto) 7 0-12 % Eosinophils (%) (Auto) 1 0-10 % Basophils (%) (Auto) 0 0-10 % Neutrophils # (Auto) 12.3 H 1.8-7.8 X 10^3 Lymphocytes # (Auto) 2.1 1.0-4.0 X 10^3 Monocytes # (Auto) 1.1 H 0.0-1.0 X 10^3 Eosinophils # (Auto) 0.1 0.0-0.3 10^3/uL Basophils # (Auto) 0.0 0.0-0.1 10^3/uL Neutrophils % (Manual) 80 % Lymphocytes % (Manual) 9 % Monocytes % (Manual) 5 % Eosinophils % (Manual) 0 % Basophils % (Manual) 0 % Band Neutrophils 0 % Reactive Lymphocytes 6 % Blood Morphology Comment NORMAL Urine Color YELLOW Urine Clarity SL CLOUDY Urine pH 6 5-9 Urine Specific [place] 1.025 H 1.016-1.022 Urine Protein 3+ H NEGATIVE Urine Glucose (UA) NEGATIVE NEGATIVE Urine Ketones 3+ H NEGATIVE Urine Nitrite NEGATIVE NEGATIVE Urine Bilirubin NEGATIVE NEGATIVE Urine Urobilinogen 1 NORMAL MG/DL Urine Leukocyte Esterase 1+ H NEGATIVE Urine RBC (Auto) 5+ H NEGATIVE Urine RBC TNTC H /HPF Urine WBC 0-2 /HPF Urine Squamous Epithelial Cells 0-2 /HPF Urine Crystals NONE /LPF Urine Bacteria TRACE /HPF Urine Casts NONE /LPF Urine Mucus MODERATE H /LPF Urine Culture Indicated NO Sodium Level 139 135-145 MMOL/L Potassium Level 4.0 3.6-5.0 MMOL/L Chloride Level 103 98-107 MMOL/L Carbon Dioxide Level 24 21-32 MMOL/L Anion Gap 12 5-14 MMOL/L Blood Urea Nitrogen 19 H 7-18 MG/DL Creatinine 1.27 0.60-1.30 MG/DL Estimat Glomerular Filtration Rate > 60 BUN/Creatinine Ratio 15 Glucose Level 116 H 70-105 MG/DL Calcium Level 9.8 8.5-10.1 MG/DL Corrected Calcium 8.5-10.1 MG/DL Total Bilirubin 0.5 0.1-1.0 MG/DL Aspartate Amino Transf (AST/SGOT) 21 5-34 U/L Alanine Aminotransferase (ALT/SGPT) 21 0-55 U/L Alkaline Phosphatase 94 40-136 U/L Total Protein 7.7 6.4-8.2 GM/DL Albumin 4.6 H 3.2-4.5 GM/DL (DORITA GUTIERREZ MD) My Orders Orders - DORITA GUTIERREZ MD Ed Iv/Invasive Line Start (01/11/19 18:23) Cbc With Automated Diff (01/11/19 18:23) Comprehensive Metabolic Panel (01/11/19 18:23) Ua Culture If Indicated (01/11/19 18:23) Ns Iv 1000 Ml (Sodium Chloride 0.9%) (01/11/19 18:23) Ketorolac Injection (Toradol Injection) (01/11/19 18:30) Ondansetron Injection (Zofran Injectio (01/11/19 18:30) Manual Differential (01/11/19 18:25) Fentanyl Injection (Sublimaze Injection (01/11/19 18:45) Lactated Ringers (Lr 1000 Ml Iv Solution (01/11/19 19:03) Ct Abd/Pelvis Wo(Kidney Stone) (01/11/19 19:03) Morphine Injection (Morphine Injection (01/11/19 19:26) Abdomen/Kub 1view (01/11/19 19:26) Ceftriaxone For Iv Use (Rocephin For I (01/11/19 20:00) (DORITA GUTIERREZ MD) Medications Given in ED Current Medications Medications Dose Ordered Sig/Saravanan Route Start Time Stop Time Status Last Admin Dose Admin Fentanyl Citrate 75 mcg ONCE ONCE IVP 01/11/19 18:45 01/11/19 18:46 DC 01/11/19 18:55 75 MCG Ketorolac Tromethamine 15 mg ONCE ONCE IVP 01/11/19 18:30 01/11/19 18:31 DC 01/11/19 18:40 15 MG Lactated Ringer's 1,000 ml @ 0 mls/hr Q0M ONCE IV 01/11/19 19:03 01/11/19 19:05 DC 01/11/19 19:27 1,000 MLS/HR Ondansetron HCl 8 mg ONCE ONCE IVP 01/11/19 18:30 01/11/19 18:31 DC 01/11/19 18:39 8 MG Sodium Chloride 1,000 ml @ 0 mls/hr Q0M ONCE IV 01/11/19 18:23 01/11/19 18:26 DC 01/11/19 18:39 1,000 MLS/HR (DORITA GUTIERREZ MD) Diagnostic Imaging Diagonstic Imaging: Xray Plain Films/CT/US/NM/MRI: abdomen, pelvis Comments KUB viewed by me and report reviewed. See report below: NAME: YONNYDORITA GONZALEZ MED REC#: [id number] PT STATUS: REG ER : 1985 PHYSICIAN: DORITA GUTIERREZ MD ADMIT DATE: 01/11/19/ER Draft Date of Exam:01/11/19 ABDOMEN/KUB 1VIEW INDICATION: Right-sided pelvic pain starting at 4:30 this afternoon, history of renal stones. FINDINGS: There is a 6.3 mm calculi overlying the right L3 spinous process. This is consistent with a calculi in the ureter. Previously this was in the right kidney. IMPRESSION: There is a calculi in the right ureter. Dictated on workstation # [id number] Dict: 01/11/191939 Trans: 01/11/191945 [facility] [id number] Interpreted by: ELAINE MOJICA MD Diagonstic Imaging: CT Plain Films/CT/US/NM/MRI: abdomen, pelvis Comments CT abdomen and pelvis viewed by me and report reviewed. See report below: NAME: DORITA HILLIARD [facility] REC#: [id number] PT STATUS: REG ER : 1985 PHYSICIAN: DORITA GUTIERREZ MD ADMIT DATE: 01/11/19/ER Draft Date of Exam:01/11/19 CT ABD/PELVIS WO(KIDNEY STONE) PROCEDURE: CT urinary tract, rule out kidney stone. TECHNIQUE: Multiple contiguous axial images were obtained through the abdomen and pelvis without the use of intravenous contrast. Auto Exposure Controls were utilized during the CT exam to meet ALARA standards for radiation dose reduction. DATE: January 11, 2019. COMPARISON: KUB January 26, 2018. CT abdomen and pelvis January 04, 2018. INDICATION: 33-year-old male, right-sided pelvic pain. FINDINGS: There are limitations for evaluation of the abdominal organs, neoplastic processes, abscess, and limited evaluation of the vasculature relating to the lack of intravenous contrast. There is a pleurally based 3 mm nodule in the right middle lobe on axial image 4. There is a 2 mm right lower lobe pulmonary nodule on axial image 6. Both nodules are unchanged since January 03, 2015 CT abdomen and pelvis exam and consistent with benign etiology. Additional visualized portions of the lung bases are clear. The heart is not enlarged. There is no identified pericardial effusion. The liver is normal in size and contour. The gallbladder is unremarkable. There is no identified intrahepatic or extrahepatic bile duct dilation. There is no gross dilation of the main pancreatic duct. Limited noncontrast assessment of the pancreatic parenchyma is without identified abnormality. The spleen is normal in size. The adrenal glands are unremarkable. There is a stone in the right proximal ureter on axial image 50 measuring 6 mm in size. There is mild to moderate right hydronephrosis. There is a 2 mm nonobstructing right renal stone on axial image 40. There is a 3 mm nonobstructing left renal stone on axial image 32. There is a punctate nonobstructing left renal stone on axial image 38. There is no left hydronephrosis. The urinary bladder is nondistended and not well evaluated. The intestinal tract is not distended. The appendix is unremarkable. There is no free intraperitoneal air. There is no drainable fluid collection. There is no free pelvic fluid. There is no identified abnormally enlarged lymph node in the abdomen or pelvis which meets CT size criteria for adenopathy. There is no identified acute bony abnormality. IMPRESSION: CT ABDOMEN AND PELVIS. 1. 6 mm stone in the right proximal ureter with mild to moderate right hydronephrosis. 2. Additional nonobstructing renal stones bilaterally. Dictated on workstation # [id number] Dict: 01/11/191919 Trans: 01/11/191944 [facility] [id number] Interpreted by: OLIVE PANIAGUA MD (DORITA GUTIERREZ MD) Departure Communication (Admissions) Time/Spoke to Admitting Phy: 19:33 Dr. Soni (DORITA GUTIERREZ MD) Impression Primary Impression: Right ureteral stone Disposition: ADMITTED INPATIENT Condition: Improved Admissions Decision to Admit Reason: Admit from ER (General) Decision to Admit/Date: Jan 11, 2019 Time/Decision to Admit Time: 19:33 (DORITA GUTIERREZ MD) Departure-Patient Inst. Referrals: NO,LOCAL PHYSICIAN (PCP/Family) Primary Care Physician This patient was interviewed and examined by me personally along with Ollie Denny, [employer] student. I agree with his history, physical, and documentation with the following additions and changes: This 33-year-old presents to the emergency room with sudden onset of right mid back, flank, and suprapubic pain that started suddenly around 16:30. He has had ureteral stones in the past including one treated with lithotripsy in 2012. Chart was reviewed. He has had ureteral stones since then. He denies any vomiting. He is afebrile. He is visibly in significant pain on assessment. Exam: Gen.: Alert, oriented, in moderate distress HEENT normocephalic and atraumatic, mucous membranes moist Heart: Regular rate and rhythm without murmur Lungs: Clear to auscultation bilaterally with normal effort Abdomen: Soft, no focal tenderness, nondistended Extremities: Normal to inspection, no edema Neuropsych: Alert, oriented, mood appropriate for situation Skin: No rashes, slightly diaphoretic Patient's pain was treated with Toradol which was followed by fentanyl and morphine. This finally controlled his pain. He also received Zofran and 2 L of IV fluids. Labs and urine were obtained. There is a significant amount of blood in the urine. CT to assess for stone was felt appropriate and was obtained with patient's permission. A 6+ mm stone was found in the proximal right ureter with hydronephrosis. Case was discussed with Dr. Soni. The lithotripsy machine will be here tomorrow. He recommended admission in preparation for her lithotripsy. Patient reluctantly agrees. A gram of Roce phin was ordered at Dr. Soni's request. (DORITA GUTIERREZ MD) ELIECER DENNY STUDENT Jan 11, 2019 18:29 DORITA GUTIERREZ MD Jan 11, 2019 20:06
[2019-01-11] MEDS ORDERED: ONDANSETRON 4 MG/2 ML (SDV) Z0FRAN IVP ONE (18:30)
[2019-01-11] MEDS ORDERED: KETOROLAC 30 MG/ML VIAL IVP ONE (18:30)
[2019-01-11 18:35] LABS: BASOPHILS % (AUTO) 0 % (0-10); EOSINOPHILS # (AUTO) 0.1 10^3/uL (0.0-0.3); EOSINOPHILS % (AUTO) 1 % (0-10); HEMATOCRIT 43 % (40-54); HEMOGLOBIN 15.1 G/DL (13.3-17.7); LYMPHOCYTES # (AUTO) 2.1 X 10^3 (1.0-4.0); LYMPHOCYTES % (AUTO) 13 % (12-44); MEAN CORPUSCULAR HEMOGLOBIN 32 PG (25-34); MEAN CORPUSCULAR HGB CONC 35 G/DL (32-36); MEAN CORPUSCULAR VOLUME 92 FL (80-99); MEAN PLATELET VOLUME 10.3 FL (7.4-10.4); MONOCYTES # (AUTO) 1.1 X 10^3 (0.0-1.0); MONOCYTES % (AUTO) 7 % (0-12); NEUTROPHILS # (AUTO) 12.3 X 10^3 (1.8-7.8); NEUTROPHILS % (AUTO) 78 % (42-75); PLATELET COUNT 217 10^3/uL (130-400); RED CELL DISTRIBUTION WIDTH 14.2 % (10.0-14.5); WHITE BLOOD COUNT 15.7 10^3/uL (4.3-11.0)
[2019-01-11 18:41] LABS: BILIRUBIN,URINE NEGATIVE (NEGATIVE); GLUCOSE, URINE (UA) NEGATIVE (NEGATIVE); KETONES,URINE 3+ (NEGATIVE); LEUKOCYTE ESTERASE ,URINE 1+ (NEGATIVE); NITRITE,URINE NEGATIVE (NEGATIVE); PH,URINE 6 (5-9); PROTEIN,URINE 3+ (NEGATIVE); UROBILINOGEN,URINE 1 MG/DL (NORMAL)
[2019-01-11 18:43] LABS: BACTERIA,URINE TRACE /HPF; CLARITY,URINE SL CLOUDY; COLOR,URINE YELLOW; RBC,URINE TNTC /HPF; SQUAMOUS EPITHELIAL CELL,UR 0-2 /HPF; WBC,URINE 0-2 /HPF
[2019-01-11] MEDS ORDERED: fentaNYL INJECTION 100 MCG/2 ML AMP IVP ONE (18:45)
[2019-01-11 18:52] LABS: ALANINE AMINOTRANSFERASE 21 U/L (0-55); ALBUMIN 4.6 GM/DL (3.2-4.5); ALKALINE PHOSPHATASE 94 U/L (40-136); BILIRUBIN,TOTAL 0.5 MG/DL (0.1-1.0); BUN/CREATININE RATIO 15; CALCIUM 9.8 MG/DL (8.5-10.1); CARBON DIOXIDE 24 MMOL/L (21-32); CHLORIDE 103 MMOL/L (98-107); CREATININE SERUM 1.27 MG/DL (0.60-1.30); GFR ESTIMATED > 60; GLUCOSE 116 MG/DL (70-105); SODIUM 139 MMOL/L (135-145); TOTAL PROTEIN 7.7 GM/DL (6.4-8.2)
[2019-01-11 18:54] LABS: BAND NEUTROPHILS 0 %; BASOPHILS % (MANUAL) 0 %; EOSINOPHILS % (MANUAL) 0 %; LYMPHOCYTES % (MANUAL) 9 %; MONOCYTES % (MANUAL) 5 %; NEUTROPHILS % (MANUAL) 80 %; RBC MORPH NORMAL; REACTIVE LYMPHOCYTES 6 %
[2019-01-11] MEDS ORDERED: LACTATED RINGERS 1,000 ML IV ONE (19:03)
[2019-01-11] MEDS ORDERED: morphine INJ 10 MG/ML 1ML (SYR OR VIAL) IVP STA (19:26)
--- NOTE | 2019-01-11 19:45 | Diagnostic Imaging Report ---
PROCEDURE: CT urinary tract, rule out kidney stone. TECHNIQUE: Multiple contiguous axial images were obtained through the abdomen and pelvis without the use of intravenous contrast. Auto Exposure Controls were utilized during the CT exam to meet ALARA standards for radiation dose reduction. DATE: January 11, 2019. COMPARISON: KUB January 26, 2018. CT abdomen and pelvis January 04, 2018. INDICATION: 33-year-old male, right-sided pelvic pain. FINDINGS: There are limitations for evaluation of the abdominal organs, neoplastic processes, abscess, and limited evaluation of the vasculature relating to the lack of intravenous contrast. There is a pleurally based 3 mm nodule in the right middle lobe on axial image 4. There is a 2 mm right lower lobe pulmonary nodule on axial image 6. Both nodules are unchanged since January 03, 2015 CT abdomen and pelvis exam and consistent with benign etiology. Additional visualized portions of the lung bases are clear. The heart is not enlarged. There is no identified pericardial effusion. The liver is normal in size and contour. The gallbladder is unremarkable. There is no identified intrahepatic or extrahepatic bile duct dilation. There is no gross dilation of the main pancreatic duct. Limited noncontrast assessment of the pancreatic parenchyma is without identified abnormality. The spleen is normal in size. The adrenal glands are unremarkable. There is a stone in the right proximal ureter on axial image 50 measuring 6 mm in size. There is mild to moderate right hydronephrosis. There is a 2 mm nonobstructing right renal stone on axial image 40. There is a 3 mm nonobstructing left renal stone on axial image 32. There is a punctate nonobstructing left renal stone on axial image 38. There is no left hydronephrosis. The urinary bladder is nondistended and not well evaluated. The intestinal tract is not distended. The appendix is unremarkable. There is no free intraperitoneal air. There is no drainable fluid collection. There is no free pelvic fluid. There is no identified abnormally enlarged lymph node in the abdomen or pelvis which meets CT size criteria for adenopathy. There is no identified acute bony abnormality. IMPRESSION: CT ABDOMEN AND PELVIS. 1. 6 mm stone in the right proximal ureter with mild to moderate right hydronephrosis. 2. Additional nonobstructing renal stones bilaterally. Dictated by: Dictated on workstation # [id number]
--- NOTE | 2019-01-11 19:46 | Diagnostic Imaging Report ---
INDICATION: Right-sided pelvic pain starting at 4:30 this afternoon, history of renal stones. FINDINGS: There is a 6.3 mm calculi overlying the right L3 spinous process. This is consistent with a calculi in the ureter. Previously this was in the right kidney. IMPRESSION: There is a calculi in the right ureter. Dictated by: Dictated on workstation # [id number]
[2019-01-11] MEDS ORDERED: cefTRIAXone FOR IV USE 1,000 MG in WATER (STERILE) FOR INJECTION 10 ML IV ONE (20:00)
--- NOTE | 2019-01-11 20:40 | NUR ---
DORITA HILLIARD admitted to room 411-1, with an admitting diagnosis of RIGHT URETERAL STONE, on 01/11/19 from ID via WHEELCHAIR, accompanied by STAFF.DORITA HILLIARD introduced to surroundings, call light, bed controls, phone, TV, temperature control, lights, meal times, smoking policy, visitor policy, side rail policy, bathrooms and showers. Patient Rights given to patient in the handbook. DORITA HILLIARD verbalizes understanding that [facility] is not responsible for the loss or damage to any personal effects or valuables that are kept in the patients posession during their hospitalization.
[2019-01-11 20:49] VITALS: BP 127/79
[2019-01-11] MEDS ORDERED: NS IV 1000 ML 1,000 ML ONE (20:56)
[2019-01-11] MEDS ORDERED: NICOTINE 21 MG (NICODERM) PATCH TD PRN (21:30)
[2019-01-11] MEDS ORDERED: ONDANSETRON 4 MG/2 ML (SDV) Z0FRAN IV PRN (21:30)
[2019-01-11] MEDS: morphine INJ 10 MG/ML 1ML (SYR OR VIAL) IV PRN ×2 (21:31→23:50)
[2019-01-11] MEDS: NS IV 1000 ML 1,000 ML IV SCH (21:33)
[2019-01-12] VITALS (10 sets, daily range): BP systolic 92–119; BP diastolic 55–77
[2019-01-12] MEDS: morphine INJ 10 MG/ML 1ML (SYR OR VIAL) IV PRN ×4 (03:23→13:36)
[2019-01-12 05:19] LABS: BASOPHILS # (AUTO) 0.1 10^3/uL (0.0-0.1); BASOPHILS % (AUTO) 1 % (0-10); EOSINOPHILS # (AUTO) 0.2 10^3/uL (0.0-0.3); EOSINOPHILS % (AUTO) 2 % (0-10); HEMATOCRIT 40 % (40-54); HEMOGLOBIN 13.6 G/DL (13.3-17.7); LYMPHOCYTES # (AUTO) 2.7 X 10^3 (1.0-4.0); LYMPHOCYTES % (AUTO) 25 % (12-44); MEAN CORPUSCULAR HEMOGLOBIN 32 PG (25-34); MEAN CORPUSCULAR HGB CONC 34 G/DL (32-36); MEAN CORPUSCULAR VOLUME 94 FL (80-99); MEAN PLATELET VOLUME 10.5 FL (7.4-10.4); MONOCYTES % (AUTO) 9 % (0-12); NEUTROPHILS # (AUTO) 6.7 X 10^3 (1.8-7.8); NEUTROPHILS % (AUTO) 63 % (42-75); PLATELET COUNT 164 10^3/uL (130-400); RED CELL DISTRIBUTION WIDTH 14.1 % (10.0-14.5); WHITE BLOOD COUNT 10.6 10^3/uL (4.3-11.0)
[2019-01-12 05:34] LABS: BUN/CREATININE RATIO 15; CALCIUM 8.3 MG/DL (8.5-10.1); CARBON DIOXIDE 25 MMOL/L (21-32); CHLORIDE 110 MMOL/L (98-107); CREATININE SERUM 0.99 MG/DL (0.60-1.30); GFR ESTIMATED > 60; GLUCOSE 104 MG/DL (70-105); POTASSIUM 4.2 MMOL/L (3.6-5.0); SODIUM 141 MMOL/L (135-145)
[2019-01-12] MEDS: NS IV 1000 ML 1,000 ML IV SCH (07:40)
--- NOTE | 2019-01-12 08:51 | Progress Note-Pre Operative ---
Pre-Operative Progress Note H&P Reviewed The H&P was reviewed, patient examined and no changes noted. Date Seen by Provider: Jan 12, 2019 Time Seen by Provider: 08:50 Date H&P Reviewed: Jan 12, 2019 Time H&P Reviewed: 08:50 Pre-Operative Diagnosis: RT PROXIMAL URETERAL STONE DIONTE JOSUE MD Jan 12, 2019 08:51
--- NOTE | 2019-01-12 09:52 | Diagnostic Imaging Report ---
INDICATION: Right kidney stone. TECHNIQUE: Frontal view of the abdomen. COMPARISON: 01/11/2019 FINDINGS: The previously seen 6 mm calculus in the proximal right ureter appears unchanged in position, at the L3 vertebral level. The bowel gas pattern is unremarkable. No large collection of free air is seen. No acute osseous abnormality seen. IMPRESSION: Unchanged 6 mm calculus in the proximal right ureter. Dictated by: Dictated on workstation # [id number]
--- NOTE | 2019-01-12 10:11 | Progress Note-Post Operative ---
Post-Operative Progess Note Surgeon (s)/Authorization Representative (s) Surgeon DIONTE JOSUE MD Authorization Representative: NONE Pre-Operative Diagnosis RT PROXIMAL URETERAL STONE Post-Operative Diagnosis SAME Procedure & Operative Findings Date of Procedure 01/12/19 Procedure Performed/Findings RT ESWL Anesthesia Type GENERAL Estimated Blood Loss Estimated blood loss (mL): NONE Specimens/Packing Specimens Removed NONE Packing: NONE DIONTE JOSUE MD Jan 12, 2019 10:11
--- NOTE | 2019-01-12 10:12 | Discharge Inst-Urology ---
Discharge Inst-Urology Reconcile Patient Problems Problems Reviewed?: Yes Patient Instructions/Follow Up Plan/Assessment/Instructions Please make appointment to been seen in office in 2 weeks. KUB prior to it KUB on way home Post ESWL instructions Increase oral fluids for 48 hours and then as needed. Diet and Activity as tolerated. If questions or concerns contact your physician Or seek help at emergency department. DIONTE JOSUE MD Jan 12, 2019 10:12
[2019-01-12] MEDS ORDERED: LACTATED RINGERS 1,000 ML IV PRN (10:20)
--- NOTE | 2019-01-12 10:23 | HISTORY AND PHYSICAL ---
DATE OF SERVICE: ADMISSION HISTORY AND PHYSICAL CHIEF COMPLAINT: Right distal ureteral stone with pain. PRESENT HISTORY: A 33-year-old man with history of urolithiasis, admitted with right flank pain, was found to have a 6 to 7 mm stone in the proximal right ureter with mild to moderate obstruction as well as small bilateral renal stones. He had previously had ESWL several years ago and has not followed up. MEDICAL ILLNESSES: Negative. MEDICATIONS: None. ALLERGIES: No known drug allergies. PREVIOUS SURGERY: As above and throat surgery as a kid and removed from the eye. PHYSICAL EXAMINATION: VITAL SIGNS: Per chart. GENERAL: Well-nourished, well-developed in no acute distress. HEAD: Normocephalic. ENT: Unremarkable. NECK: Supple, no bruits. CHEST: Clear and nontender. HEART: Regular rate and rhythm, no murmurs. ABDOMEN: Soft with 1+ right CVA tenderness. EXTERNAL GENITALIA: Adequate male configuration. EXTREMITIES: Lower extremities, no edema or cyanosis. NEUROLOGIC: Grossly intact. Oriented x 3. IMPRESSION: 1. Right proximal ureteral stone with pain and obstruction. 2. Bilateral renal stone. 3. History of urolithiasis. PLAN: Admit for IV antibiotics, hydration and analgesics. Tomorrow, we will proceed with ESWL unless the stone moves and we will discuss it with the patient. As of now, the ESWL was fully explained to the patient. Job ID: [id number] DocumentID: [id number] Dictated Date: 01/12/2019 07:32:52 Billing Collections Specialist Date: 01/12/2019 07:46:49 Dictated By: DIONTE JOSUE MD
--- NOTE | 2019-01-12 10:26 | NUR ---
Patient down to OR at this time.
[2019-01-12] MEDS ORDERED: DEXAMETHASONE 10 MG/ML (DECADRON) 1 ML VIAL ONE (10:30)
[2019-01-12] MEDS ORDERED: KETOROLAC 30 MG/ML VIAL ONE (10:30)
[2019-01-12] MEDS ORDERED: FUROSEMIDE 40 MG/4 ML INJ (LASIX) ONE (10:30)
[2019-01-12] MEDS ORDERED: LIDOCAINE PF 2% 5 ML (XYLOCAINE) VIAL ONE (10:30)
[2019-01-12] MEDS ORDERED: ONDANSETRON 4 MG/2 ML (SDV) Z0FRAN ONE (10:30)
[2019-01-12] MEDS ORDERED: proPOfol 200 MG/20 ML (DIPRIVAN) VIAL IV ONE ×2 (10:30→11:09)
[2019-01-12] MEDS ORDERED: MIDAZOLAM 2 MG/2 ML (VERSED) VIAL ONE (10:31)
[2019-01-12] MEDS ORDERED: fentaNYL INJECTION 100 MCG/2 ML AMP ONE (10:31)
[2019-01-12] MEDS ORDERED: SEVOFLURANE (ULTANE) 15 ML INHAL SOLN ONE (11:43)
[2019-01-12] MEDS ORDERED: HYDROmorphone 2 MG/ML VIAL (DILAUDID) IV ONE (12:00)
[2019-01-12] MEDS ORDERED: ONDANSETRON 4 MG/2 ML (SDV) Z0FRAN IVP PRN (12:00)
--- NOTE | 2019-01-12 12:35 | NUR ---
Patient back in room at this time after recovery
--- NOTE | 2019-01-12 16:03 | OPERATIVE REPORT ---
DATE OF SERVICE: 01/12/2019 PREOPERATIVE DIAGNOSIS: Right proximal ureteral stone. POSTOPERATIVE DIAGNOSIS: Right proximal ureteral stone. OPERATION PERFORMED: Right ESWL. SURGEON: Bharat Josue MD ANESTHESIA: General. COMPLICATIONS: None. DESCRIPTION OF PROCEDURE: Under satisfactory general anesthesia, the patient in supine position on the ESWL table, the right proximal ureteral stone was localized. Shocks were delivered at kV of 6. A total of 3000 shocks completely fragmented the stone with good layering. The patient received 40 mg of Lasix and 30 mg of Toradol IV at the end of the procedure. He tolerated the procedure and anesthesia well and was sent to recovery room in stable condition. Job ID: [id number] DocumentID: [id number] Dictated Date: 01/12/2019 11:34:53 Back Shoe Cutter Date: 01/12/2019 16:02:57 Dictated By: BHARAT JOSUE MD
== END 2019-01-12 14:25 | disposition home or self-care (01) ==
LOC: EDUNIT# 18:06 → ER 18:07 → 4TH 19:55
PROVIDERS: ADMIT Urology; ATTEND Urology
DX: N20.2 Calculus of kidney with calculus of ureter (principal); N13.5 Crossing vessel and stricture of ureter without hydronephrosis; F41.9 Anxiety disorder, unspecified; F32.9 Major depressive disorder, single episode, unspecified; F17.210 Nicotine dependence, cigarettes, uncomplicated; Z79.891 Long term (current) use of opiate analgesic; Z79.899 Other long term (current) drug therapy
CPT/HCPCS: 36415; 74018; 74176; 80048; 80053; 81000; 85007; 85025; 85027; 96361; 96365; 96375

== ENCOUNTER 2019-04-28 10:03 | Emergency (ER) | payer SELFPAY ==
[~2019-04-28] VITALS: Ht 175.2 cm; Wt 79.8 kg
--- NOTE | 2019-04-28 10:07 | NUR ---
[facility] PATIENT NAME NOT IN WAITNG ROOM
[2019-04-28] MEDS ORDERED: NS IV 1000 ML 1,000 ML IV ONE (10:20)
[2019-04-28 10:27] LABS: BASOPHILS % (AUTO) 0 % (0-10); EOSINOPHILS # (AUTO) 0.1 10^3/uL (0.0-0.3); EOSINOPHILS % (AUTO) 1 % (0-10); HEMATOCRIT 44 % (40-54); HEMOGLOBIN 15.3 G/DL (13.3-17.7); LYMPHOCYTES # (AUTO) 0.8 X 10^3 (1.0-4.0); LYMPHOCYTES % (AUTO) 8 % (12-44); MEAN CORPUSCULAR HEMOGLOBIN 32 PG (25-34); MEAN CORPUSCULAR HGB CONC 35 G/DL (32-36); MEAN CORPUSCULAR VOLUME 91 FL (80-99); MEAN PLATELET VOLUME 10.1 FL (7.4-10.4); MONOCYTES # (AUTO) 0.7 X 10^3 (0.0-1.0); MONOCYTES % (AUTO) 7 % (0-12); NEUTROPHILS # (AUTO) 8.2 X 10^3 (1.8-7.8); NEUTROPHILS % (AUTO) 84 % (42-75); PLATELET COUNT 187 10^3/uL (130-400); WHITE BLOOD COUNT 9.8 10^3/uL (4.3-11.0)
[2019-04-28 10:46] LABS: ALANINE AMINOTRANSFERASE 29 U/L (0-55); ALBUMIN 4.4 GM/DL (3.2-4.5); ALKALINE PHOSPHATASE 96 U/L (40-136); BILIRUBIN,TOTAL 0.6 MG/DL (0.1-1.0); BUN/CREATININE RATIO 16; CALCIUM 9.2 MG/DL (8.5-10.1); CARBON DIOXIDE 22 MMOL/L (21-32); CHLORIDE 103 MMOL/L (98-107); CREATININE SERUM 1.28 MG/DL (0.60-1.30); GFR ESTIMATED > 60; GLUCOSE 113 MG/DL (70-105); POTASSIUM 4.3 MMOL/L (3.6-5.0); SODIUM 138 MMOL/L (135-145); TOTAL PROTEIN 7.4 GM/DL (6.4-8.2)
[2019-04-28 11:04] LABS: EOSINOPHILS % (MANUAL) 1 %; LYMPHOCYTES % (MANUAL) 8 %; MONOCYTES % (MANUAL) 11 %; NEUTROPHILS % (MANUAL) 74 %; RBC MORPH NORMAL; REACTIVE LYMPHOCYTES 6 %
[2019-04-28] MEDS ORDERED: ONDANSETRON 4 MG/2 ML (SDV) Z0FRAN IVP ONE (11:15)
[2019-04-28] MEDS ORDERED: KETOROLAC 30 MG/ML VIAL IVP ONE (11:15)
[2019-04-28 11:23] LABS: CLARITY,URINE SL CLOUDY; COLOR,URINE BROWN; GLUCOSE, URINE (UA) NEGATIVE (NEGATIVE); KETONES,URINE 1+ (NEGATIVE); LEUKOCYTE ESTERASE ,URINE TRACE (NEGATIVE); NITRITE,URINE NEGATIVE (NEGATIVE); PH,URINE 6.5 (5-9); PROTEIN,URINE 2+ (NEGATIVE)
[2019-04-28 11:29] LABS: BILIRUBIN,URINE 1+ (NEGATIVE)
[2019-04-28 11:33] LABS: RBC,URINE TNTC /HPF
[2019-04-28 11:34] LABS: BACTERIA,URINE TRACE /HPF
--- NOTE | 2019-04-28 11:59 | NUR ---
TO CT PER W/C
[2019-04-28] MEDS ORDERED: fentaNYL INJECTION 100 MCG/2 ML AMP IVP ONE (12:00)
[2019-04-28] MEDS ORDERED: cefTRIAXone FOR IV USE 1,000 MG in WATER (STERILE) FOR INJECTION 10 ML IV ONE (12:00)
--- NOTE | 2019-04-28 12:28 | Diagnostic Imaging Report ---
PROCEDURE: CT urinary tract, rule out kidney stone. TECHNIQUE: Multiple contiguous axial images were obtained through the abdomen and pelvis without the use of intravenous contrast. Auto Exposure Controls were utilized during the CT exam to meet ALARA standards for radiation dose reduction. DATE: April 28, 2019. COMPARISON: KUB January 12, 2019. CT abdomen and pelvis January 11, 2019. INDICATION: 33-year-old male, right flank pain. FINDINGS: There are limitations for evaluation of the abdominal organs, neoplastic processes, abscess, and limited evaluation of the vasculature relating to the lack of intravenous contrast. There is a 3 mm pleural-based right middle lobe pulmonary nodule on axial image 4. There is a 2 mm pleural-based right lower lobe pulmonary nodule on axial image 6. Additional visualized portions of the lung bases are clear. The heart is not enlarged. There is no pericardial effusion. The liver is normal in size and contour. The gallbladder is unremarkable. There is no intrahepatic or extrahepatic bile duct dilation. The main pancreatic duct is not abnormally dilated. Unremarkable noncontrast evaluation of the pancreatic parenchyma. The spleen is not enlarged. The adrenal glands are unremarkable. There is a stone in the right mid ureter on axial image 75 which measures 6.7 mm in size. There is associated moderate right hydronephrosis. There is a nonobstructing 2 mm right renal stone on axial image 41. There is a punctate 1 to 2 mm nonobstructing left renal stone on axial image 26 and a nonobstructing 4 mm left renal stone on axial image 32. There is an additional punctate 1 to 2 mm left renal stone on axial image 38. There is no left hydronephrosis. There is no left ureteral stone. There are pelvic calcifications present consistent with phleboliths. The urinary bladder is unremarkable in appearance. The intestinal tract is not distended. The appendix is normal. There is no free intraperitoneal air. There is no drainable fluid collection. There is no free pelvic fluid. There is no identified abnormally enlarged lymph node in the abdomen or pelvis which meets CT size criteria for adenopathy. There is no acute bony abnormality. IMPRESSION: CT ABDOMEN AND PELVIS. 1. 7 mm stone in the right mid ureter with moderate right hydronephrosis. 2. Additional nonobstructing renal stones bilaterally. Dictated by: Dictated on workstation # [id number]
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
[2019-04-28] MEDS ORDERED: GLYCOPYRROLATE 0.2 MG/ML (ROBINUL) 2 ML VIAL IV ONE (12:45)
[2019-04-28] MEDS ORDERED: ACHD5005 PO (12:49)
[2019-04-28] MEDS ORDERED: CEPH-507 PO ×2 (12:49→12:52)
[2019-04-28] MEDS ORDERED: ONDA4TAB11 PO (12:49)
[2019-04-28 13:07] VITALS: BP 126/88
[2019-04-28] MEDS: NS IV 1000 ML 1,000 ML IV SCH (13:07)
== END 2019-04-28 13:07 | disposition home or self-care (01) ==
LOC: EDUNIT# 10:03 → ER 10:04
DX: N13.2 Hydronephrosis with renal and ureteral calculous obstruction (principal); F17.210 Nicotine dependence, cigarettes, uncomplicated
CPT/HCPCS: 36415; 74176; 80053; 81000; 83690; 85007; 85027; 87088; 96361; 96374; 96375

== ENCOUNTER 2020-10-14 13:43 | Emergency (ER) | payer SELFPAY ==
[~2020-10-14] VITALS: Ht 172 cm; Wt 81.6 kg
[~2020-10-14 13:43] MED LIST changes: +CEPH-507 PO; +ONDA4TAB11 PO; -TAMS0.4C98 PO; +TMSL.4C PO
[2020-10-14 13:50] VITALS: BP 145/79
[2020-10-14] MEDS ORDERED: ACHD5005 PO (14:24)
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
== END 2020-10-14 14:28 | disposition home or self-care (01) ==
LOC: EDUNIT# 13:43 → ER 13:46
DX: K02.9 Dental caries, unspecified (principal); F17.210 Nicotine dependence, cigarettes, uncomplicated
CPT/HCPCS: 99282

== ENCOUNTER 2020-10-15 07:45 | Emergency (ER) | payer SELFPAY | END 2020-10-15 08:52 | disposition left against medical advice (07) | LOC: EDUNIT# 07:45 → ER 07:47 | DX: K08.89 Other specified disorders of teeth and supporting structures (principal) ==

== ENCOUNTER 2020-10-17 05:27 | Emergency (ER) | payer SELFPAY ==
[2020-10-17 05:30] VITALS: BP 140/99
[2020-10-17] MEDS ORDERED: NAPR500T8 PO (05:42)
[2020-10-17] MEDS ORDERED: LIDO20SO23 MM (05:42)
[2020-10-17] MEDS ORDERED: CLIN300C12 PO (05:42)
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
[2020-10-17] MEDS ORDERED: LIDOCAINE 2% VISCOUS 15 ML UDC MM ONE (05:45)
[2020-10-17] MEDS ORDERED: KETOROLAC 60 MG/2 ML VIAL IM ONE (05:45)
== END 2020-10-17 06:02 | disposition home or self-care (01) ==
LOC: ER 05:30
DX: K02.9 Dental caries, unspecified (principal); H92.02 Otalgia, left ear; F17.210 Nicotine dependence, cigarettes, uncomplicated
CPT/HCPCS: 99284